=== PATIENT | male | born 1985 | race African-American/Black ===

== ENCOUNTER 2021-04-09 00:50 | Emergency (ER) | payer OTHER ==
[~2021-04-09] VITALS: Ht 182.9 cm; Wt 96.0 kg
[2021-04-09 00:51] VITALS: BP 137/89
[2021-04-09] MEDS ORDERED: LIDOCAINE-MPF 1%, 5ML ONE ×2 (01:10→01:17)
[2021-04-09] MEDS ORDERED: LIDOCAINE-MPF 1%, 5ML INFIL ONE (01:30)
--- NOTE | 2021-04-09 01:44 | NUR ---
PT HAS LEFT TOE PAIN AFTER DROPPING A METAL JUG ON IT, PT HAS SMALL LAC ON LEFT BIG TOE. PT CRYING IN TRIAGE. PT HAS MOTHER AT BEDSIDE COACHING PT WITH "JUST LOOK AT ME BABY" TO HELP WITH PT TOE PAIN. PT DENIED ANY CURRENT WANT OR NEEDS.
[2021-04-09] MEDS ORDERED: NEOSPORIN OINT. PKT 1 PACKET ONE (02:07)
== END 2021-04-09 02:16 | disposition home or self-care (01) ==
LOC: ED 02:00
DX: S91.112A Laceration without foreign body of left great toe without damage to nail, initial encounter (principal); X58.XXXA Exposure to other specified factors, initial encounter; Y93.89 Activity, other specified; Y92.009 Unspecified place in unspecified non-institutional (private) residence as the place of occurrence of the external cause; Y99.8 Other external cause status
CPT/HCPCS: 12042; 99284